=== PATIENT | female | born 1945 | race Caucasian/White ===

== ENCOUNTER 2016-10-21 11:04 | Outpatient (CLI) | payer MEDICARE, MEDICAID ==
[2016-10-21 11:34] LABS: % BASOPHILS 1.4 % (0.0-2.0); % EOSINOPHILS 2.1 % (0.0-5.0); % LYMPHOCYTES 23.3 % (20.0-50.0); % MONOCYTES 12.4 % (2.0-10.0); % NEUTROPHILS 60.8 % (40.0-80.0); HEMATOCRIT 35.5 % (35.0-45.0); HEMOGLOBIN 12.2 gm/dL (11.7-16.1); MEAN CORPUSCULAR HEMOGLOBIN 30.6 pg (27.0-31.0); MEAN CORPUSCULAR HGB CONC 34.4 pg (28.0-36.0); MEAN PLATELET VOLUME 8.8 fl; NEUTROPHILE ABSOLUTE 2.1 Th/cmm (1.8-8.0); RED BLOOD COUNT 3.99 Mil/cmm (3.80-5.20); RED CELL DISTRIBUTION WIDTH 12.6 % (11.5-20.0); WHITE BLOOD COUNT 3.4 Th/cmm (4.8-10.8)
[2016-10-21 11:37] LABS: PLATELET COUNT 186 Th/cmm (150-400)
[2016-10-21 12:02] LABS: ALB/GLOB RATIO 1.1 (1.0-1.8); ALKALINE PHOSPHATASE 76 U/L (34-104); ANION GAP 5.3 (7.0-16.0); BILIRUBIN,TOTAL 0.5 mg/dL (0.3-1.0); BUN - UREA NITROGEN 14 mg/dL (7-25); BUN/CREATININE RATIO 17.5; CARBON DIOXIDE 27.1 mEq/L (21.0-31.0); CHLORIDE 108 mEq/L (98-107); CHOLESTEROL 163 mg/dL (<200); CREATININE - SERUM 0.8 mg/dL (0.6-1.2); GLUCOSE 90 mg/dL (70-105); POTASSIUM SERUM 3.4 mEq/L (3.5-5.1); SGOT 16 U/L (13-39); SGPT/ALT 10 U/L (7-52); SODIUM SERUM 137 mEq/L (136-145); TRIGLYCERIDES 133 mg/dL (<150)
== END 2016-10-21 12:00 | disposition home or self-care (01) ==
LOC: LAB 11:04
PROVIDERS: ATTEND Internal Medicine Infectious Disease
DX: I10 Essential (primary) hypertension (principal); E11.9 Type 2 diabetes mellitus without complications; E03.9 Hypothyroidism, unspecified; E78.5 Hyperlipidemia, unspecified; M19.90 Unspecified osteoarthritis, unspecified site
CPT/HCPCS: 36415-UA; 80053-TC; 80061-TC; 83036-90; 84443-TC; 85025-TC

== ENCOUNTER 2016-10-29 14:01 | Emergency (ER) | payer MEDICARE, MEDICAID ==
[2016-10-29] MEDS ORDERED: fentaNYL Citrate 100 mcg/2mL Vial IVP ONE ×3 (14:27→18:18)
[2016-10-29] MEDS ORDERED: Midazolam 1mg/ml 2 ml vial IV STA ×2 (14:36→15:02)
--- NOTE | 2016-10-29 14:45 | ED Physician Chart ---
Chief Complaint/HPI - Patient Information Date Seen:: 10/29/16 Time Seen:: 14:15 Chief Complaint:: right hip pain, recurrent Allergies:: Allergies Allergy/AdvReac Type Severity Reaction Status Date / Time No Known Allergies Allergy Verified 10/29/16 14:28 Vitals:: Vital Signs - 8 hr 10/29/16 14:29 Temp 98.2 F HR 73 RR 17 BP 149/85 O2 Sat % 98 Review:: Nurse's Note Reviewed, EMS run form Reviewed (recurrent right hip prosthesis dislocation) Past Medical History - Past Medical History Past Medical History: HTN, Dyslipidemia, Other (depression) Family History: Diabetes Melitus Social History: Non Smoker, Alcohol Surgical History: other (ortho) Psychiatricy History: Depression Family Medical History - Family Member Father History Unknown: Yes (dm) Ethnicity: Living Status: Hx Family Cancer: No Hx Family Coronary Artery Disease: Yes Hx Family Hypertension: Yes Hx Family Diabetes: Yes Mother Ethnicity: Living Status: Still Living Hx Family Diabetes: Yes Physical Exam - Physical Examination General/Constitutional: Awake, Alert, GCS 15, Non-toxic appearing Head: Atraumatic Neck: Nontender Respiratory: Clear to Auscultation, No Wheeze/Rhonchi/Rales Cardio Vascular: RRR, No murmur, gallop, rubs Other Extremities comments:: right lower extremity is foreshortened and rotated medially, tenderness right hip. 100% nv to toes. Neuro/Psych: Alert/oriented, Normal sensory exam, Judgement/insight normal, No focal deficits ED Septic Shock - . Is Septic Shock (SBP<90, OR Lactate>4 mmol\L) present?: No - <6hrs of presentation: Vital Signs: Vital Signs - 8 hr 10/29/16 14:29 Temp 98.2 F HR 73 RR 17 BP 149/85 O2 Sat % 98 Procedures - Procedural Sedation ASA Class: II PROCEDURE - Procedure Note Procedure Note: PHYSICIAN Procedure Note: Procedure: Indications: Procedure performed by: Kishore Peacock Consent: Consent was obtained from the patietn prior to the procedure. Indications, risks and benefits were discussed with the patient. All questions were answered. Procedure Summary: Complications: Estimated Blood Loss: SignedKishore [id number] Course Vital Signs Temp 98.2 F 10/29/16 14:29 HR 73 10/29/16 14:29 RR 17 10/29/16 14:29 BP 149/85 10/29/16 14:29 O2 Sat % 98 10/29/16 14:29 Temp 98.2 F 10/29/16 14:29 HR 73 10/29/16 14:29 RR 17 10/29/16 14:29 BP 149/85 10/29/16 14:29 O2 Sat % 98 10/29/16 14:29 Radiology Results - Radiology Radiology Results: dislocated right hip prosthesis
[2016-10-29] MEDS ORDERED: fentaNYL Citrate 100 mcg/2mL Vial ONE ×3 (14:56→17:55)
[2016-10-29] MEDS ORDERED: Midazolam 1mg/ml 2 ml vial IV ONE ×4 (14:56→17:55)
[2016-10-29] MEDS ORDERED: Naloxone 0.4 mg/mL 1mL Vial IV ONE (15:10)
[2016-10-29] MEDS ORDERED: Flumazenil 0.1 m/mL 5mL Vial IVP STA (15:10)
[2016-10-29] MEDS ORDERED: Naloxone 0.4 mg/mL 1mL Vial ONE (16:34)
[2016-10-29] MEDS ORDERED: Flumazenil 0.1 m/mL 5mL Vial IVP ONE (16:36)
[2016-10-29] MEDS ORDERED: Dexamethasone Sodium Phos 4 mg/mL Vial IVP STA (20:57)
[2016-10-29] MEDS ORDERED: Dexamethasone Sodium Phos 10 mg/mL PF Vial ONE (21:00)
--- NOTE | 2016-10-29 21:13 | ED Physician Chart ---
Chief Complaint/HPI - Patient Information Allergies:: Allergies Allergy/AdvReac Type Severity Reaction Status Date / Time No Known Allergies Allergy Verified 10/29/16 14:28 Vitals:: Vital Signs - 8 hr 10/29/16 10/29/16 14:29 19:30 Temp 98.2 F 98.2 F HR 73 100 RR 17 20 BP 149/85 139/72 O2 Sat % 98 98 Family Medical History - Family Member Father History Unknown: Yes (dm) Ethnicity: Living Status: Hx Family Cancer: No Hx Family Coronary Artery Disease: Yes Hx Family Hypertension: Yes Hx Family Diabetes: Yes Mother Ethnicity: Living Status: Still Living Hx Family Diabetes: Yes ED Septic Shock - . Is Septic Shock (SBP<90, OR Lactate>4 mmol\L) present?: No - <6hrs of presentation: Vital Signs: Vital Signs - 8 hr 10/29/16 10/29/16 14:29 19:30 Temp 98.2 F 98.2 F HR 73 100 RR 17 20 BP 149/85 139/72 O2 Sat % 98 98 Procedures - Procedural Sedation Indication: fracture/dislocation reduction ASA Class: II Preparation: cardiac cath lab radiology technologist applied, pulse oximeter, supplemental O2 applied, suction/airway equipment at bedside, IV secured IV Etomidate Dose (mgs): 20 Patient Tolerated Procedure: well Complications: none Interventions: oxygen applied (right hip prosthesis post reduction film pending)
--- NOTE | 2016-10-30 10:25 | Diagnostic Imaging Report ---
Right hip (2 views) HISTORY: Pain The exam demonstrates dislocation of a right hip arthroplasty Incidentally noted is a left hip arthroplasty appears normal. IMPRESSION: 1. Dislocation right hip arthroplasty
--- NOTE | 2016-10-30 10:27 | Diagnostic Imaging Report ---
Right hip (2 views) HISTORY: Dislocation Compared with prior exam performed earlier in the day, there has been reduction of the previously noted dislocation of a right hip arthroplasty. IMPRESSION: Reduction in previously noted dislocation of a right hip arthroplasty
== END 2016-10-29 22:00 | disposition home or self-care (01) ==
LOC: ER 14:01
DX: T84.020A Dislocation of internal right hip prosthesis, initial encounter (principal); I10 Essential (primary) hypertension; E78.5 Hyperlipidemia, unspecified; X58.XXXA Exposure to other specified factors, initial encounter; Y93.89 Activity, other specified; Y92.89 Other specified places as the place of occurrence of the external cause; Y99.8 Other external cause status
CPT/HCPCS: 99285; 96374; 96375; 27250; 73501 ×2; X6206 ×3; J2250 ×2; J2405; 90779; 90799; 96376; X6614

== ENCOUNTER 2016-12-27 10:41 | Inpatient (IN) | payer MEDICARE, MEDICAID ==
--- NOTE | 2016-12-27 10:57 | ED Physician Chart ---
Chief Complaint/HPI - Patient Information Date Seen:: 12/27/16 Time Seen:: 10:40 Chief Complaint:: neck pain History of Present Illness:: onset x 3 days of exertional neck pains radiating to the chest and both shoulders and left arm with some dyspnea; no abd. pain, A/N/V/D/C, fever, chills Allergies:: Allergies Allergy/AdvReac Type Severity Reaction Status Date / Time No Known Allergies Allergy Verified 10/29/16 14:28 Historian:: Patient, Family Member Review:: Nurse's Note Reviewed Review of Systems - Review of Systems General/Constitutional: Fever, No fever, Chills, No chills, No weight loss, No weakness, No diaphoresis, No edema, No loss of appetite Skin: No skin lesions, No rash, No bruising Head: No headache, No light-headedness Eyes: No loss of vision, No pain, No diplopia ENT: No earache, No nasal drainage, No sore throat, No tinnitus Neck: Neck pain, No swelling, No thyromegaly, No stiffness, No mass noted Cardio Vascular: Chest pain, Palpitations, No PND, No orthopnea, No edema Pulmonary: SOB, Cough, No sputum, No wheezing GI: Nausea, Vomiting, Diarrhea, No pain, No melena, No hematochezia, No constipation, No hematemesis G/U: No dysuria, No frequency, No hematuria Musculoskeletal: No bone or joint pain, No back pain, No muscle pain Endocrine: No polyuria, No polydipsia Psychiatric: No prior psych history, No depression, No anxiety, No suicidal ideation Hematopoietic: No bruising, No lymphadenopathy Allergic/Immuno: No urticaria, No angioedema Neurological: No syncope, No focal symptoms, No weakness, No paresthesia, No headache, No seizure, No dizziness, No confusion, No vertigo Past Medical History - Past Medical History Past Medical History: HTN, CAD, Dyslipidemia Family History: Heart disease, Diabetes Melitus, HTN Social History: Smoker, Alcohol, No Drug Use Surgical History: HIP (Stents for CAHD), other Psychiatricy History: None Medication: Reviewed Family Medical History - Family Member Father History Unknown: Yes (dm) Ethnicity: Living Status: Hx Family Cancer: No Hx Family Coronary Artery Disease: Yes Hx Family Hypertension: Yes Hx Family Diabetes: Yes Mother Ethnicity: Living Status: Still Living Hx Family Diabetes: Yes Physical Exam - Physical Examination General/Constitutional: Awake, Well-developed, well-nourished, Alert, No distress, GCS 15, Non-toxic appearing, Ambulatory Head: Atraumatic Eyes: Lids, conjuctiva normal, PERRL, EOMI Skin: Nl inspection, No rash, No skin lesions, No ecchymosis, Well hydrated, No lymphadenopathy ENMT: External ears, nose nl, Nasal exam nl, Lips, teeth, gums nl Neck: Nontender, Full ROM w/o pain, No JVD, No nuchal rigidity, No bruit, No mass, No stridor Respiratory: Nl effort/Exclusion, Clear to Auscultation, No Wheeze/Rhonchi/Rales Cardio Vascular: RRR, No murmur, gallop, rubs, NL S1 S2 GI: No tenderness/rebounding/guarding, No organomegaly, No hernia, Normal BS's, Nondistended, No mass/bruits, No McBurney tenderness : No CVA tenderness Extremities: No tenderness or effusion, Full ROM, normal strength in all extremities, No edema, Normal digits & nails Neuro/Psych: Alert/oriented, DTR's symmetric, Normal sensory exam, Normal motor strength, Judgement/insight normal, Mood normal, Normal gait, No focal deficits Misc: normal gait, Normal back, No paraspinal tenderness ED Septic Shock - . Is Septic Shock (SBP<90, OR Lactate>4 mmol\L) present?: No Reassessment (Disposition) - Reassessment Reassessment Condition:: Improved - Diagnosis Diagnosis:: Unstable Angina Pectoris - Aftercare/Follow up Instructions Aftercare/Follow-Up Instructions:: Counseled pt regarding lab results/diagnosis & need follow up, Counseled pt & family regarding lab results/diagnosis & need follow up - Patient Disposition Discharge/Transfer:: Acute Care w/in this hosp Accepting Physician:: Dr. Luu Time Called:: 1300 Time Responded:: 13:10 Admitted to:: Telemetry Spoke to:: Dr. Luu Condition at Disposition:: Stable, Improved
[2016-12-27] MEDS ORDERED: Aspirin 81mg Chewable Tab PO STA (10:59)
[2016-12-27 11:16] LABS: HEMATOCRIT 38.1 % (35.0-45.0); HEMOGLOBIN 12.8 gm/dL (11.7-16.1); MEAN CELL VOLUME 88.3 fl (81-100); MEAN CORPUSCULAR HEMOGLOBIN 29.6 pg (27.0-31.0); MEAN CORPUSCULAR HGB CONC 33.5 pg (28.0-36.0); MEAN PLATELET VOLUME 8.4 fl; PLATELET COUNT 185 Th/cmm (150-400); RED BLOOD COUNT 4.31 Mil/cmm (3.80-5.20)
[2016-12-27] MEDS ORDERED: Aspirin 81mg Chewable Tab ONE (11:16)
[2016-12-27 11:18] LABS: WHITE BLOOD COUNT 3.1 Th/cmm (4.8-10.8)
--- NOTE | 2016-12-27 11:19 | Diagnostic Imaging Report ---
CHEST X-RAY: AP view INDICATION: pain COMPARISON: None FINDINGS: Spinal scoliosis is noted. Left basal subsegmental atelectasis versus scarring is noted. No focal consolidation or pleural effusions. Borderline prominent heart is noted. Atherosclerosis is noted. There may be a retrocardiac hiatal hernia. Degenerative changes of the spine are noted. IMPRESSION: Chronic lung changes with left basal subsegmental atelectasis versus scarring. No consolidation identified. Borderline prominent heart. Atherosclerotic vascular disease. Retrocardiac density, possibly representing a hiatal hernia. Lateral views or CT would further clarify.
[2016-12-27 11:26] LABS: INR 0.94 (0.5-1.4); PROTHROMBIN TIME (TEST) 9.8 SECONDS (9.5-11.5)
[2016-12-27 11:29] LABS: ANION GAP 9.4 (7.0-16.0); BUN - UREA NITROGEN 10 mg/dL (7-25); BUN/CREATININE RATIO 14.3; CALCIUM SERUM 7.9 mg/dL (8.6-10.3); CARBON DIOXIDE 22.2 mEq/L (21.0-31.0); CHLORIDE 110 mEq/L (98-107); CHOLESTEROL 204 mg/dL (<200); CREATININE - SERUM 0.7 mg/dL (0.6-1.2); GLUCOSE 114 mg/dL (70-105); POTASSIUM SERUM 3.6 mEq/L (3.5-5.1); SODIUM SERUM 138 mEq/L (136-145); TRIGLYCERIDES 155 mg/dL (<150)
[2016-12-27 11:33] LABS: TROP I 0.01 ng/mL (0.01-0.05)
[2016-12-27 11:43] LABS: BNP 56.7 pg/mL (5.0-100.0)
[2016-12-27 12:03] LABS: BAND NEUTROPHILE 1 % (0-10); NEUTROPHILS 57 % (40-80); PLATELET ESTIMATE ADEQUATE (NORMAL); TOTAL CELLS COUNTED 100
[2016-12-27 13:47] LABS: URINE BILIRUBIN NEGATIVE (NEGATIVE); URINE BLOOD TRACE (NEGATIVE); URINE COLOR YELLOW; URINE GLUCOSE (UA) NEGATIVE (NEGATIVE); URINE KETONE NEGATIVE (NEGATIVE); URINE PROTEIN NEGATIVE (NEGATIVE); URINE UROBILINOGEN 0.2 E.U./dL (0.2 - 1.0)
[2016-12-27 13:51] LABS: URINE BACTERIA OCCASIONAL /hpf (NONE SEEN); URINE EPITHELIAL CELLS OCCASIONAL /lpf (FEW); URINE RBC 0-2 /hpf (0-5); URINE WBC 0-2 /hpf (0-5)
[2016-12-27] MEDS: NITROGLYCERIN OINT 2% 1 INCH PACKET TP SCH ×2 (15:40→21:41)
[2016-12-27] MEDS: Hydrocodone/APAP 10 mg/325 mg Tab PO PRN ×2 (15:40→21:52)
[2016-12-27 16:25] VITALS: BP 126/75
--- NOTE | 2016-12-27 21:09 | Admit Criteria Form ---
Admit Criteria Forms - Admit Criteria Diagnosis: TELEMETRY CARE Telemetry Admission Guidelines (Place 'X' for any and all applicable criteria): Admission to telemetry [A] may be indicated for ANY ONE of the following(1)(2)(3 )(4)(5): [X]I. Cardiac disease, including ANY ONE of the following (9)(10)(11)(12)(13 ): [ ]a) Postacute ID [ ]b) Low-risk patients with ST-segment elevation ID who have undergone successful percutaneous coronary intervention [X]c) Unstable angina [ ]d) Suspected ID (until it is ruled out) [ ]e) Post cardiac surgery (first 48 to 72 hours unless complications occur) [ ]f) Acute arrhythmias (including significant tachycardia or bradycardia) [B] [ ]g) Firing of an implantable cardioverter defibrillator [C] [ ]h) Suspected pacemaker or implantable cardioverter defibrillator malfunction (10) [ ]i) New administration or adjustment of an antiarrhythmic drug [D ] [ ]j) Child admitted for acute congestive heart failure [ ]j) Long QT syndrome [ ]k) Advanced heart block (eg, second-degree Mobitz type II, third- degree heart block) [ ]l) Acute myocarditis or pericarditis [ ]m) Short-term (ambulatory or inpatient) monitoring after a cardiac procedure as indicated by ANY ONE of the following [E]: [ ]i) Electrophysiologic studies [ ]ii) Percutaneous coronary intervention with stent placement [ ]iii) Pacemaker placement with cardiac conduction defect [ ]iv) Implantable cardiac defibrillator placement [ ]II. Drug overdose or poisoning with substance that causes arrhythmias or QT prolongation (eg, phenothiazines, sympathomimetic agents, cyclic antidepressants, digitalis, antiarrhythmic drugs)(15) [ ]III. Short-term (ambulatory or inpatient) monitoring after therapeutic or diagnostic procedure requiring conscious sedation or anesthesia (eg, endoscopy, elective cardioversion) [ ]IV. Acute cerebrovascular even[F](18) [ ]V. Massive blood transfusion (eg, at least 10 units of packed red blood cells in 24 hours) [ ]. Variceal bleeding after endoscopy, sclerotherapy, or IV vasopressin [ ]VII. Uncorrected electrolyte abnormalities associated with an increased risk of dangerous arrhythmia [G]; examples include [ ]a) Hyperkalemia with attributable ECG changes [ ]b) Potassium greater than 6.5 mmol/L (mEq/L) in a patient without history of chronic renal disease [ ]c) Prolonged QT attributed to hypokalemia, hypomagnesemia, or hypocalcemia [ ]VIII.Unexplained syncope or other neurologic event suspected of being due to arrhythmia due to a finding that increases risk; examples include(19)(20)(21): [ ]a) High-risk ECG findings (eg, bifascicular block, bradycardia, abnormal QT interval, ventricular pre- excitation) [ ]b) History of previous syncope due to arrhythmia [ ]c) Abnormal ventricular function (eg, reduced ejection fraction ) [ ]d) Exertional or supine syncope [ ]e) Concerning syncope characteristics (eg, sudden loss of consciousness without prodrome) [ ]f) Family history of sudden [ ]g) Use of arrhythmogenic medication [ ]h) Suspected cardiac ischemia [ ]i) Known channelopathy (eg, long QT syndrome, Brugada syndrome, or catecholaminergic paroxysmal ventricular tachycardia) [ ]j) Known structural heart disease (eg, hypertrophic cardiomyopathy , severe valvular disease) [ ]k) Palpitations preceding syncope The original [employer] content created by [employer] has been revised. The portions of the content which have been revised are identified through the use of italic text or in bold, and [employer] [email or web address] has neither reviewed nor approved the modified material. All other unmodified content is copyright [employer]. Please see references footnoted in the original [employer] edition 2016 Admit Criteria Met?: Yes
[2016-12-28] MEDS: Hydrocodone/APAP 10 mg/325 mg Tab PO PRN ×3 (02:56→22:37)
[2016-12-28] MEDS: NITROGLYCERIN OINT 2% 1 INCH PACKET TP SCH ×3 (07:00→21:13)
[2016-12-28] MEDS ORDERED: AMLODIPINE PO SCH (09:00)
[2016-12-28] MEDS ORDERED: VALSARTAN PO SCH (09:00)
[2016-12-28] MEDS: Potassium Chloride Elixir 20 mEq /15 mL UDC PO SCH (09:22)
[2016-12-28] MEDS: Pantoprazole 40 mg EC Tab PO SCH (09:23)
[2016-12-28] MEDS: Aspirin 81mg Chewable Tab PO SCH (09:24)
--- NOTE | 2016-12-28 12:54 | Diagnostic Imaging Report ---
Soft tissue neck 2 views History: Neck pain Comparison: None Findings: Extensive degenerative change of the cervical spine are noted. Note that the lower cervical spine is incompletely visualized on this exam. No prevertebral soft tissue swelling. The airways intact. The epiglottis is grossly unremarkable. There is diffuse loss of the ventilation. IMPRESSION: Intact airway. No prevertebral soft tissue swelling Extensive degenerative changes of the cervical spine. If indicated, dedicated x-ray images of the cervical spine or CT may also be obtained.
--- NOTE | 2016-12-28 18:37 | History & Physical ---
ADMIT DATE: 12/27/2016 HISTORY OF PRESENT ILLNESS: This is a 71-year-old female who was brought to the Emergency Room complaining of just skin discomfort radiating to the neck, history of ____. The patient started having above symptoms on the day of admission, acute sudden [id number] and the patient was evaluated by the ER, referred for admission with angina. Admission orders are given. The patient examined as soon as possible. PAST MEDICAL HISTORY: Osteoarthritis, osteoporosis, coronary artery disease, fibromyalgia, keratitis, hypertension, depression, hip replacement, hernia repair, breast biopsy, PTCA, ex-smoker. The patient is allergic to pneumococcal____ vaccine. REVIEW OF SYSTEMS: A 14-point review of system negative except above. PHYSICAL EXAMINATION: GENERAL: The patient is alert, awake, decreased vision without any distress. VITAL SIGNS: Temperature is 97.9, pulse 69, respiration 17, blood pressure 118/75. HEENT: Mild pallor, no icterus or plaque. NECK: Supple. No thyroid, no cervical lymph nodes, arthritic changes present. LUNGS: Breath sounds bilateral. CARDIOVASCULAR: S1, S2. ABDOMEN: Soft, nontender. Bowel sounds. LABORATORY DATA: White count 3000, hemoglobin is 12 g, platelets 185. Creatinine is 0.7. UA negative. Chest x-ray shows chronic lung changes, hiatal hernia. DIAGNOSIS: Angina, rule out myocardial infarction. PLAN: The patient started aspirin, nitrites, beta-lory, pain control with [place]. Restart home medication, cardiac profile q. 8 hours. Rest of the care as ordered in [facility]PO[facility]. JOB# [id number]
[2016-12-29] MEDS: NITROGLYCERIN OINT 2% 1 INCH PACKET TP SCH ×3 (05:07→21:08)
[2016-12-29] MEDS: Hydrocodone/APAP 10 mg/325 mg Tab PO PRN ×3 (05:12→23:56)
[2016-12-29] MEDS: Pantoprazole 40 mg EC Tab PO SCH (09:05)
[2016-12-29] MEDS: Aspirin 81mg Chewable Tab PO SCH (09:05)
[2016-12-29] MEDS: Potassium Chloride Elixir 20 mEq /15 mL UDC PO SCH (09:06)
--- NOTE | 2016-12-29 19:21 | Cardiology ---
12/27/2016 ECHOCARDIOGRAM REPORT The patient of Dr. Mario Luu. M-MODE ECHOCARDIOGRAM: Mitral valve, anterior leaflet of mitral valve shows normal excursion, EF velocity. Posterior leaflet of the mitral valve shows normal excursion. Left ventricular posterior wall shows increased thickness, normal excursion. Interventricular septum shows increased thickness, normal excursion, hypertrophy of the left ventricle, ejection fraction 55%. Left atrium normal. Aortic root shows normal dimension, normal excursion of aortic leaflets. CONCLUSION: Hypertrophy of the left ventricle, ejection fraction 55%. 2D ECHO: Long axis view showed normal sized left ventricle with hypertrophy of the left ventricle. Left atrium normal. Aortic root shows normal dimension, normal excursion of aortic leaflets. Short axis view of mitral valve normal, short axis view of aortic valve normal. Apical four chamber view showed normal sized left ventricle with hypertrophy of the left ventricle. Left atrium normal. Right ventricular cavity, right atrium normal. No pericardial effusion. CONCLUSION: Hypertrophy of the left ventricle, ejection fraction 55%. Doppler study shows prominent A wave consistent with poor compliance of left ventricle, ____trace mild tricuspid regurgitation, trace mitral regurgitation. JOB# [id number]
--- NOTE | 2016-12-29 20:30 | Consultation ---
DATE OF CONSULTATION: 12/27/2016 The patient is a patient of Dr. Mario Luu. HISTORY AND PHYSICAL: This is a 71-year-old female patient who had been complaining of neck pain. Following this the patient put vibrator with it and the patient started complaining of pain in the neck which gradually deteriorated and radiated to the chest. At this time, the patient came to the Emergency Room and the patient is admitted. PAST MEDICAL HISTORY: Osteoarthritis, osteoporosis, stable angina, coronary artery disease with stent placement, fibromyalgia, keratitis, hypertension, major depression, hip replacement, hernia repair and breast biopsy. FAMILY HISTORY: Unremarkable. SOCIAL HISTORY: No history of smoking and alcohol abuse. ALLERGIES: The patient is allergic to pneumococcal vaccine. PHYSICAL EXAMINATION: VITAL SIGNS: Blood pressure 100/70, pulse 88 and respirations 28. HEAD: Normocephalic. No lumps or bumps. EYES: Pupils equal, reactive to light. Fundi show AV nicking, sclerae white, conjunctivae pink. NECK: Carotid 2+. Normal upstroke. JVD flat. Thyroid not palpable. Lymph nodes not palpable. CHEST: Shows increased AP diameter. No kyphosis or scoliosis. LUNGS: Bilateral bronchovesicular breath sounds. HEART: PMI, fifth intercostal space with azvwjlm-gx-lbsgfegotdqra line. S1 and S2. No S3, S4. Systolic murmur, grade 2/6, lower left sternal border without radiation. ABDOMEN: Soft. Liver and spleen not palpable. No organomegaly. Bowel sounds are active. NEUROLOGIC: Unremarkable. EXTREMITIES: Peripheral pulses 2+. No pedal edema. CLINICAL IMPRESSION: ____ radiculopathy, atypical chest pain, osteoarthritis, osteoporosis, stable angina, history of coronary artery disease with stent placement, major depression, hypertension, keratitis, fibromyalgia, hiatal hernia and history of hip placement. PLAN: Admit the patient. We will get troponin level, EKG, echocardiogram. Monitor the patient on telemetry bed for any arrhythmias. JOB# [id number]
[2016-12-30] MEDS: NITROGLYCERIN OINT 2% 1 INCH PACKET TP SCH ×2 (05:46→15:22)
[2016-12-30] MEDS: Potassium Chloride Elixir 20 mEq /15 mL UDC PO SCH (08:32)
[2016-12-30] MEDS: Aspirin 81mg Chewable Tab PO SCH (08:32)
[2016-12-30] MEDS: Pantoprazole 40 mg EC Tab PO SCH (08:32)
[2016-12-30] MEDS: Hydrocodone/APAP 10 mg/325 mg Tab PO PRN (10:19)
--- NOTE | 2016-12-30 13:09 | Diagnostic Imaging Report ---
CT scan cervical spine HISTORY: Pain Total DLP equals 500 CTDI equals 23.0 Axial sections were obtained through the cervical spine. Additional sagittal and coronal reformatted images are provided. The exam the C3-4 level demonstrates marked narrowing of the interspace. Hypertrophic spur formation seen about the vertebral endplates. Air is seen within the interspace reflecting degenerative disc disease. Spur formation results in a mild (2 mm) extradural indentation on the anterior spinal canal. Mild bilateral neural foraminal encroachment. The C4-5 level demonstrates degenerative changes with spur formation about the vertebral endplates. No significant extradural abnormalities. The C5-6 level demonstrates degenerative changes with narrowing of the interspaces. Spur formation seen about the vertebral endplates. No significant extradural abnormalities. The C6-7 level demonstrates degenerative changes with spur formation about the vertebral endplates. Spur formation results in a minimal extradural indentation on the anterior spinal canal. Additional degenerative changes seen within the upper thoracic spine. The prevertebral soft tissues appear normal. IMPRESSION: 1. Relatively severe diffuse degenerative changes
--- NOTE | 2016-12-30 23:14 | Consultation ---
DATE OF CONSULTATION: 12/30/2016 HISTORY OF PRESENT ILLNESS: This is a 71-year-old female who complains of pain in the neck going down the left arm and left shoulder. Numbness in the arm. The patient also complained of chest pain. PAST MEDICAL HISTORY: Fibromyalgia, coronary artery disease, hypertension, depression and the patient has osteoporosis. PAST SURGICAL HISTORY: Breast biopsy, hernia repair and hip replacement. SOCIAL HISTORY: She used to smoke, not now and does not drink much. ALLERGIES: To pneumococcal vaccine. REVIEW OF SYSTEMS: On direct questioning some headache. Neck pain as about. Numbness in arm. The patient has chest pain. Shortness of breath. No abdominal pain, no constipation, diarrhea. Speech okay. PHYSICAL EXAMINATION: VITAL SIGNS: Temperature 98.2, blood pressure 120/75 and pulse is 76. NECK: Supple. No bruits. HEART: Sounds S1, S2. LUNGS: Clear. NEUROLOGIC: The patient is awake and alert. She answers questions. Speech is normal. When I arrived in the room, the patient was awake. The patient was walking around the room and did not seem to be in any distress. CRANIAL: Pupils react to light. Full eye movement. No nystagmus. No facial weakness. MOTOR: She lifts both arms up 4+/4, lower extremity 4+. Reflexes 1+ upper extremities. Knees are about 2 with ankles 1. IMPRESSION: 1. Neck pain. 2. Cervical radiculopathy. 3. Chest pain. 4. Hypertension. 5. History of coronary artery disease. 6. Fibromyalgia. 7. Hypertension. 8. Depression. PLAN: At this time is MRI of the cervical spine. Further workup depending on the progress. JOB# [id number]
--- NOTE | 2016-12-31 01:56 | Discharge Summary ---
DATE OF DISCHARGE: 12/30/2016 DISCHARGE DIAGNOSES: 1. Angina. 2. Neck pain. HISTORY OF PRESENT ILLNESS/HOSPITAL COURSE: The patient started having angina on the day of admission. 911 was called. The patient was brought to Emergency Room and was seen by ER physician Dr. Collins and was referred for admission. The patient's troponin was negative. Cardiology consultation with Dr. Lorena Luu was called and cleared for discharge. The patient also had x-ray of the neck and C-spine, CT which shows spur formation and indentation of anterior spinal canal. Neurosurgeon not available in the facility. We will refer as outpatient. Also, Neurology consultation has been called to Dr. Tiwari and evaluation still pending. We will try to refer her as outpatient. INSTRUCTION ON DISCHARGE: 2 g sodium, low-cholesterol diet, restart home medication including [place] to control her pain symptoms and we will see her in the office on Monday. Activity as tolerated. JOB# [id number]
== END 2016-12-30 16:30 | disposition home or self-care (01) | DRG 303 ==
LOC: ER 10:41 → TELE 13:30
PROVIDERS: ADMIT Internal Medicine Infectious Disease; ATTEND Internal Medicine Infectious Disease
DX: I25.119 Atherosclerotic heart disease of native coronary artery with unspecified angina pectoris (principal); I10 Essential (primary) hypertension; K44.9 Diaphragmatic hernia without obstruction or gangrene; M19.90 Unspecified osteoarthritis, unspecified site; M81.0 Age-related osteoporosis without current pathological fracture; M79.7 Fibromyalgia; F32.9 Major depressive disorder, single episode, unspecified; E78.5 Hyperlipidemia, unspecified; R07.89 Other chest pain; F17.210 Nicotine dependence, cigarettes, uncomplicated; M54.12 Radiculopathy, cervical region; Z83.3 Family history of diabetes mellitus; Z95.5 Presence of coronary angioplasty implant and graft; Z82.49 Family history of ischemic heart disease and other diseases of the circulatory system
CPT/HCPCS: 36415-UA; 70360-TC; 71010-TC; 72125-TC; 80048-TC; 80061-TC; 80320-TC; 81001-TC; 82550-TC; 83605; 83880-TC; 84484-TC; 85007-TC; 85027-TC; 85610-TC; 87086-90; 93005; Z7610

== ENCOUNTER 2018-01-28 08:59 | Emergency (ER) | payer MEDICARE, MEDICAID ==
[2018-01-28] MEDS ORDERED: Morphine Sulfate 4 mg/mL 1mL Syr IM ONE (09:34)
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
[2018-01-28] MEDS ORDERED: Morphine Sulfate 4 mg/mL 1mL Syr ONE (09:38)
--- NOTE | 2018-01-28 10:10 | Diagnostic Imaging Report ---
Exam: Left shoulder joint. HISTORY: Injury. Findings: Multiple views of left shoulder joint reviewed. The study demonstrates no evidence for acute fracture dislocation. The acromioclavicular joint is intact. Degenerative changes of the left shoulder joint appreciated. IMPRESSION mild degenerative changes left shoulder joint no evidence for fracture or dislocation.
== END 2018-01-28 10:15 | disposition home or self-care (01) ==
LOC: ER 08:59
DX: S43.005A Unspecified dislocation of left shoulder joint, initial encounter (principal); I25.10 Atherosclerotic heart disease of native coronary artery without angina pectoris; Z90.49 Acquired absence of other specified parts of digestive tract; X58.XXXA Exposure to other specified factors, initial encounter; Y93.89 Activity, other specified; Y92.89 Other specified places as the place of occurrence of the external cause; Y99.8 Other external cause status
CPT/HCPCS: 73030-TC-LT; Z7502

== ENCOUNTER 2018-02-03 08:58 | Inpatient (IN) | payer MEDICARE, MEDICAID ==
--- NOTE | 2018-02-03 09:14 | ED Physician Chart ---
History of Present Illness - General Chief Complaint: Hip Pain Stated Complaint: HIP PAIN Time Seen by Provider: 02/03/18 09:00 Source: Patient, EMS - History of Present Illness Timing/Duration: this morning Severity: moderate Hip Pain Location: hip (R) Method of Injury/Prior Injury: twisted Allergies/Adverse Reactions: Allergies influenza virus vaccine ts [id number] (36 mos,up) [From Fluarix] Allergy ( Verified 02/03/18 09:07) Home Medications: Ambulatory Orders Gabapentin [Gabapentin*] 100 mg PO TID 03/13/13 Omeprazole [Prilosec*] 40 mg PO DAILY 03/13/13 Simvastatin [Zocor*] 20 mg PO DAILY 03/13/13 alprazOLAM [Xanax] 0.5 mg PO TID PRN 03/13/13 Amlodipine/Valsartan [Amlodipine Besylate-Valsartan 10 mg-320 mg] 1 tab PO DAILY 10/29/16 Calcium Carbonate [Os-Patrick] 500 mg PO BID 10/29/16 Furosemide [Lasix] 20 mg PO DAILY 10/29/16 Hydrocodone/APAP 10 mg/325 mg [[place] 10 mg/325 mg] 1 tab PO Q6H PRN 10/29/16 Potassium Chloride 600 mg PO DAILY 10/29/16 Sertraline [Zoloft] 25 mg PO DAILY 10/29/16 Past History - Past Medical History Medical History: Hypertension Surgical History: Cholecystectomy, Other (HYSTERECTOMY) LMP (females 10-50): HYSTERECTOMY - Social History Smoking Status: Former smoker Hx Alcohol Use: No Family Medical History - Family Member Father History Unknown: Yes (dm) Ethnicity: Living Status: Hx Family Cancer: No Hx Family Coronary Artery Disease: Yes Hx Family Hypertension: Yes Hx Family Diabetes: Yes Mother History Unknown: Yes Ethnicity: Living Status: Still Living Hx Family Diabetes: Yes Review of Systems - Review of Systems EENTM: Reports: No symptoms reported Respiratory: Reports: No Symptoms Reported Cardiology: Reports: No symptoms reported Gastrointestinal/Abdominal: Reports: No symptoms reported Genitourinary: Reports: No Symptoms Reported Musculoskeletal: Reports: See HPI, Muscle Pain Skin: Reports: No Symptoms Reported Neurological: Reports: No Symptoms Reported Physical Exam - Physical Exam General Appearance: no apparent distress Eyes, Ears, Nose, Throat Exam: PERRL/EOMI Neck Exam: non-tender Cardiovascular/Respiratory: regular rate, rhythm, no M/R/G, normal peripheral pulses Gastrointestinal/Abdominal: Normal bowel sounds Back Exam: normal inspection Extremity Exam: no evidence of injury Skin Exam: normal color Departure - Departure Disposition: PT DISCHARGED HOME Discharge Problem: SEVERE RIGHT HIP PAIN Condition: Stable Home Medications: Ambulatory Orders Gabapentin [Gabapentin*] 100 mg PO TID 03/13/13 Omeprazole [Prilosec*] 40 mg PO DAILY 03/13/13 Simvastatin [Zocor*] 20 mg PO DAILY 03/13/13 alprazOLAM [Xanax] 0.5 mg PO TID PRN 03/13/13 Amlodipine/Valsartan [Amlodipine Besylate-Valsartan 10 mg-320 mg] 1 tab PO DAILY 10/29/16 Calcium Carbonate [Os-Patrick] 500 mg PO BID 10/29/16 Furosemide [Lasix] 20 mg PO DAILY 10/29/16 Hydrocodone/APAP 10 mg/325 mg [[place] 10 mg/325 mg] 1 tab PO Q6H PRN 10/29/16 Potassium Chloride 600 mg PO DAILY 10/29/16 Sertraline [Zoloft] 25 mg PO DAILY 10/29/16 ED Discharge Plan - Patient Disposition Admit/Discharge/Transfer: PT DISCHARGED HOME
--- NOTE | 2018-02-03 09:56 | Diagnostic Imaging Report ---
Right hip (3 views) HISTORY: Pain The exam demonstrates dislocation of a right hip arthroplasty. IMPRESSION: 1. Dislocation right hip arthroplasty
[2018-02-03] MEDS ORDERED: Midazolam 1mg/ml 2 ml vial IV ONE (10:16)
[2018-02-03] MEDS ORDERED: fentaNYL Citrate 100 mcg/2mL Vial ONE ×2 (10:17→10:32)
[2018-02-03] MEDS ORDERED: HYDROmorphone 2 mg/mL 1mL Vial ONE (11:19)
[2018-02-03] MEDS ORDERED: Ketamine 50 mg/mL 10mL Vial ONE (11:27)
[2018-02-03 13:20] LABS: % BASOPHILS 0.7 % (0.0-2.0); % EOSINOPHILS 0.4 % (0.0-5.0); % LYMPHOCYTES 8.8 % (20.0-50.0); % MONOCYTES 6.9 % (2.0-10.0); % NEUTROPHILS 83.2 % (40.0-80.0); HEMATOCRIT 39.4 % (41.0-60); LYMPHOCYTE ABSOLUTE 0.6 Th/cmm (1.5-3.0); MEAN CELL VOLUME 88.5 fl (81-100); MEAN CORPUSCULAR HEMOGLOBIN 29.2 pg (27.0-31.0); MEAN PLATELET VOLUME 8.8 fl; MONOCYTE ABSOLUTE 0.4 Th/cmm (0.3-1.0); NEUTROPHILE ABSOLUTE 5.3 Th/cmm (1.8-8.0); PLATELET COUNT 212 Th/cmm (150-400); RED BLOOD COUNT 4.46 Mil/cmm (3.80-5.20); RED CELL DISTRIBUTION WIDTH 13.1 % (11.5-20.0); WHITE BLOOD COUNT 6.3 Th/cmm (4.8-10.8)
[2018-02-03 13:33] LABS: PROTHROMBIN TIME (TEST) 10.4 SECONDS (9.5-11.5)
[2018-02-03 13:35] LABS: ALB/GLOB RATIO 1.2 (1.0-1.8); ALKALINE PHOSPHATASE 188 U/L (34-104); ANION GAP 11.8 (7.0-16.0); BILIRUBIN,TOTAL 0.7 mg/dL (0.3-1.0); BUN - UREA NITROGEN 10 mg/dL (7-25); CALCIUM SERUM 9.3 mg/dL (8.6-10.3); CARBON DIOXIDE 24.3 mEq/L (21.0-31.0); CHLORIDE 105 mEq/L (98-107); CREATININE - SERUM 0.7 mg/dL (0.6-1.2); GLUCOSE 94 mg/dL (70-105); MAGNESIUM 2.1 mg/dL (1.9-2.7); POTASSIUM SERUM 4.1 mEq/L (3.5-5.1); SGOT 129 U/L (13-39); SGPT/ALT 48 U/L (7-52); SODIUM SERUM 137 mEq/L (136-145); TOTAL PROTEIN,SERUM 7.3 gm/dL (6.0-8.3)
[2018-02-03 15:53] VITALS: BP 125/54
[2018-02-03] MEDS ORDERED: Hydrocodone/APAP 10 mg/325 mg Tab PO PRN (19:52)
[2018-02-03] MEDS: HYDROmorphone 2 mg/mL 1mL Vial IVP PRN (21:25)
--- NOTE | 2018-02-04 08:41 | History and Physical ---
History of Present Illness - HPI Chief Complaint: Hip dislocation HPI: Patient refer that she was trying to get in bed when she felt something in right hip, reason why she came to ER. Vital Signs: Last Vital Signs Temp 98.8 F 02/04/18 08:02 Pulse 72 02/04/18 08:02 Resp 18 02/04/18 08:02 BP 143/72 02/04/18 08:02 Pulse Ox 96 02/04/18 08:02 Past Medical History Cardiovascular: Report: HTN Pulmonary: Report: No Pertinent Hx CABIN SUPERVISOR: Report: No Pertinent Hx GI: Report: No Pertinent Hx Psych: Report: No Pertinent Hx Musculoskeletal: Report: No Pertinent Hx Rheumatologic: Report: No pertinent Hx Infectious Disease: Report: No Pertinent Hx Renal/: Report: No Pertinent Hx Endocrine: Report: No Pertinent Hx Dermatology: Report: No Pertinent Hx - Past Surgical History Past Surgical History: Other (Bilateral hip replacement) Family Medical History - Family Member Father History Unknown: Yes (dm) Ethnicity: Living Status: Hx Family Cancer: No Hx Family Coronary Artery Disease: Yes Hx Family Hypertension: Yes Hx Family Diabetes: Yes Mother History Unknown: Yes Ethnicity: Living Status: Still Living Hx Family Diabetes: Yes Social History Smoke: No Alcohol: None Drugs: None Lives: With Family Domestic Violence: Negative - Medications Home Medications: Home Medication Medication Instructions Recorded Type Gabapentin [Gabapentin*] 100 mg PO TID 03/13/13 History Omeprazole [Prilosec*] 40 mg PO DAILY 03/13/13 History Simvastatin [Zocor*] 20 mg PO DAILY 03/13/13 History alprazOLAM [Xanax] 0.5 mg PO TID PRN 03/13/13 History Amlodipine/Valsartan [Amlodipine 1 tab PO DAILY 10/29/16 History Besylate-Valsartan 10 mg-320 mg] Calcium Carbonate [Os-Patrick] 500 mg PO BID 10/29/16 History Furosemide [Lasix] 20 mg PO DAILY 10/29/16 History Hydrocodone/APAP 10 mg/325 mg 1 tab PO Q6H PRN 10/29/16 History [[place] 10 mg/325 mg] Potassium Chloride 600 mg PO DAILY 10/29/16 History Sertraline [Zoloft] 25 mg PO DAILY 10/29/16 History - Allergies Allergies/Adverse Reactions: Allergies Allergy/AdvReac Type Severity Reaction Status Date / Time influenza virus vaccine ts Allergy Verified 02/03/18 09:07 [id number] (36 mos,up) [From Fluarix] Review of Systems - Review of Systems Constitutional: Report: No Significant Eyes: Report: No Significant ENT: Report: No Significant Respiratory: Report: No Significant Cardiovascular: Report: No Significant Gastrointestinal: Report: No Significant Genitourinary: Report: No Significant Musculoskeletal: Report: Leg Pain Neurological: Report: No Significant Physical Exam - Physical Exam HEENT: Report: Ears Nose Throat within normal limits Neck: Report: Within normal limits Cardiovascular Systems: Report: Regular, Rate and Rhythm Respiratory: Report: Breath Sounds are within normal limits Abdomen: Report: Non-tender to palpation Back: Report: Inspection of back is within normal limits. Extremities: Report: Non-tender to palpation. Skin: Report: Color of skin is within normal limits, Warm, Dry Neuro/Psych: Report: Mood affect is within normal limits - Lab Results All Lab Results last 24 hours: Laboratory Results - last 24 hr 02/03/18 02/03/18 02/03/18 13:06 13:06 13:06 WBC 6.3 RBC 4.46 Hgb 13.0 Hct 39.4 L MCV 88.5 MCH 29.2 MCHC Differential 33.0 RDW 13.1 Plt Count 212 MPV 8.8 Neutrophils % 83.2 H Lymphocytes % 8.8 L Monocytes % 6.9 Eosinophils % 0.4 Basophils % 0.7 PT 10.4 INR 1.00 Sodium 137 Potassium 4.1 Chloride 105 Carbon Dioxide 24.3 Anion Gap 11.8 BUN 10 Creatinine 0.7 Est GFR ( Amer) TNP Est GFR (Non-Af Amer) TNP BUN/Creatinine Ratio 14.3 Glucose 94 Calcium 9.3 Magnesium 2.1 Total Bilirubin 0.7 AST 129 H ALT 48 Alkaline Phosphatase 188 H Total Protein 7.3 Albumin 4.0 Globulin 3.3 Albumin/Globulin Ratio 1.2 - Assessment Assessment: Current Active Problems Problem Status Onset SEVERE RIGHT HIP PAIN Acute Patient is awake, alert, calm in no acute distress. Dx: Hip dislocation, HTN - Plan Plan: Patient is in pain control, continue with home meds. She will have surgery today.
--- NOTE | 2018-02-04 08:43 | Diagnostic Imaging Report ---
Portable chest x-ray HISTORY: Shortness of breath The heart size appears generous. No focal pulmonary processes. Scoliosis of the thoracic spine convexity to the right. Severe arthritic changes noted about the right shoulder. IMPRESSION: 1. No acute focal pulmonary processes 2. Cardiomegaly
--- NOTE | 2018-02-04 08:45 | Diagnostic Imaging Report ---
Right hip (2 views) HISTORY: Dislocation, pain The exam is compared with prior study performed earlier in the day (0939 hours) Exam demonstrates persistent dislocation of a right hip arthroplasty. Scoliosis and degenerative changes seen in the visualized spine. IMPRESSION: 1. Dislocation right hip arthroplasty
[2018-02-04] MEDS ORDERED: AMLODIPINE PO SCH (09:00)
[2018-02-04] MEDS ORDERED: VALSARTAN PO SCH (09:00)
[2018-02-04] MEDS ORDERED: OMEPRAZOLE 40 MG PO SCH (09:00)
--- NOTE | 2018-02-04 09:01 | Diagnostic Imaging Report ---
Right hip (2 views) HISTORY: Dislocation, status post reduction attempt Compared with earlier exams, there is persistent dislocation of a right hip arthroplasty IMPRESSION: 1. Persistent dislocation of a right hip arthroplasty
[2018-02-04] MEDS ORDERED: fentaNYL Citrate 100 mcg/2mL Vial ONE (09:29)
[2018-02-04] MEDS: Pantoprazole 40 mg/Packet PO SCH ×2 (09:33→14:25)
[2018-02-04] MEDS ORDERED: Neostigmine 10mg/10mL Vial ONE (09:53)
[2018-02-04] MEDS ORDERED: Propofol **SURGERY USE ONLY** 20 ML IV ONE (09:53)
--- NOTE | 2018-02-04 11:27 | Diagnostic Imaging Report ---
Right hip (intraoperative fluoroscopic images and services) HISTORY: Dislocation Intraoperative fluoroscopic images and services were provided for facilitation of reduction of a dislocation. 14 seconds fluoroscopy time was utilized.
--- NOTE | 2018-02-04 14:48 | Operative Report ---
DATE OF SURGERY: 02/04/2018 PREOPERATIVE DIAGNOSIS: Dislocation, right total hip prosthesis, closed. POSTOPERATIVE DIAGNOSIS: Dislocation, right total hip prosthesis, closed. SURGEON: Bon Zuniga M.D. PATROL SUPERVISOR: None. ANESTHESIOLOGIST: Dr. Lara. ANESTHESIA: General anesthesia. PROCEDURE: Closed dislocation, right total hip prosthesis under general anesthesia. DESCRIPTION OF PROCEDURE: Following satisfactory anesthesia by Dr. Lara, the patient was placed prone on the operative table with assistant softball coach holding the pelvis applying countertraction. The right thigh was dropped over the edge of the table and the hip easily manipulated into place. The result was viewed with the C-arm and the reduction appeared complete and concentric. She was placed on an abduction pillow and then placed supine on the hospital bed and anesthesia reversed. POSTOPERATIVE CONDITION: Good. JOB# [id number]
[2018-02-04] MEDS: HYDROmorphone 2 mg/mL 1mL Vial IVP PRN (21:42)
[2018-02-05 06:52] LABS: % BASOPHILS 1.5 % (0.0-2.0); % EOSINOPHILS 2.1 % (0.0-5.0); % LYMPHOCYTES 17.8 % (20.0-50.0); % MONOCYTES 10.9 % (2.0-10.0); % NEUTROPHILS 67.7 % (40.0-80.0); BASOPHILE ABSOLUTE 0.1 Th/cumm (0-0.2); EOSINOPHILE ABSOLUTE 0.1 Th/cmm (0.1-0.4); HEMATOCRIT 38.9 % (41.0-60); HEMOGLOBIN 12.8 gm/dL (12-16); LYMPHOCYTE ABSOLUTE 0.8 Th/cmm (1.5-3.0); MEAN CELL VOLUME 88.3 fl (81-100); MEAN CORPUSCULAR HEMOGLOBIN 29.1 pg (27.0-31.0); MEAN CORPUSCULAR HGB CONC 32.9 pg (28.0-36.0); MEAN PLATELET VOLUME 9.4 fl; MONOCYTE ABSOLUTE 0.5 Th/cmm (0.3-1.0); NEUTROPHILE ABSOLUTE 3.2 Th/cmm (1.8-8.0); PLATELET COUNT 193 Th/cmm (150-400); RED CELL DISTRIBUTION WIDTH 13.1 % (11.5-20.0); WHITE BLOOD COUNT 4.7 Th/cmm (4.8-10.8)
[2018-02-05 06:59] LABS: ALB/GLOB RATIO 1.1 (1.0-1.8); ALBUMIN 3.5 gm/dL (3.7-5.3); ALKALINE PHOSPHATASE 150 U/L (34-104); ANION GAP 11.1 (7.0-16.0); BILIRUBIN,TOTAL 0.6 mg/dL (0.3-1.0); BUN - UREA NITROGEN 11 mg/dL (7-25); CALCIUM SERUM 8.9 mg/dL (8.6-10.3); CARBON DIOXIDE 26.4 mEq/L (21.0-31.0); CHLORIDE 102 mEq/L (98-107); CREATININE - SERUM 0.7 mg/dL (0.6-1.2); GLUCOSE 109 mg/dL (70-105); POTASSIUM SERUM 3.5 mEq/L (3.5-5.1); SGOT 48 U/L (13-39); SGPT/ALT 48 U/L (7-52); SODIUM SERUM 136 mEq/L (136-145); TOTAL PROTEIN,SERUM 6.7 gm/dL (6.0-8.3)
[2018-02-05] MEDS: Pantoprazole 40 mg/Packet PO SCH (09:17)
--- NOTE | 2018-02-05 11:45 | Discharge Summary ---
General Discharge Summary - Discharge Summary Patient Problems: All Active Problems SEVERE RIGHT HIP PAIN (Acute) Discharge Date: 02/05/17 Laboratory Findings: Laboratory Results - last 24 hr 02/05/18 02/05/18 05:55 05:55 WBC 4.7 L RBC 4.40 Hgb 12.8 Hct 38.9 L MCV 88.3 MCH 29.1 MCHC Differential 32.9 RDW 13.1 Plt Count 193 MPV 9.4 Neutrophils % 67.7 Lymphocytes % 17.8 L Monocytes % 10.9 H Eosinophils % 2.1 Basophils % 1.5 Sodium 136 Potassium 3.5 Chloride 102 Carbon Dioxide 26.4 Anion Gap 11.1 BUN 11 Creatinine 0.7 Est GFR ( Amer) TNP Est GFR (Non-Af Amer) TNP BUN/Creatinine Ratio 15.7 Glucose 109 H Calcium 8.9 Total Bilirubin 0.6 AST 48 H ALT 48 Alkaline Phosphatase 150 H Total Protein 6.7 Albumin 3.5 L Globulin 3.2 Albumin/Globulin Ratio 1.1 Home Medications: Home Medication Medication Instructions Recorded Type Gabapentin [Gabapentin*] 100 mg PO TID 03/13/13 History Omeprazole [Prilosec*] 40 mg PO DAILY 03/13/13 History Simvastatin [Zocor*] 20 mg PO DAILY 03/13/13 History alprazOLAM [Xanax*] 0.5 mg PO TID PRN 03/13/13 History Amlodipine/Valsartan 1 tab PO DAILY 10/29/16 History [Amlodipine-Valsartan 10-320 mg] Calcium Carbonate [Os-Patrick] 500 mg PO BID 10/29/16 History Furosemide [Lasix] 20 mg PO DAILY 10/29/16 History Hydrocodone/APAP 10 mg/325 mg 1 tab PO Q6H PRN 10/29/16 History [[place] 10 mg/325 mg] Potassium Chloride 600 mg PO DAILY 10/29/16 History Sertraline [Zoloft] 25 mg PO DAILY 10/29/16 History Acetaminophen [Tylenol] 500 mg PO Q5H PRN #0 tab 02/04/18 Rx Ibuprofen [Motrin*] 800 mg PO Q5H PRN tab 02/04/18 Rx Pantoprazole [Protonix] 40 mg PO DAILY pkt 02/04/18 Rx amLODIPine Besylate [Norvasc*] 10 mg PO DAILY tab 02/04/18 Rx Inpatient Medications: Current Medications Acetaminophen (Tylenol) 500 mg PO Q5H PRN PRN Reason: Pain or Fever >101 Stop: 04/05/18 11:46 Last Admin: 02/04/18 14:27 Dose: 500 mg Amlodipine Besylate (Norvasc) 10 mg PO DAILY [facility] Stop: 04/05/18 10:59 Last Admin: 02/05/18 09:17 Dose: Not Given Gabapentin (Neurontin) 100 mg PO TID [facility]NY Stop: 04/04/18 20:59 Last Admin: 02/05/18 09:17 Dose: 100 mg Hydromorphone HCl (Dilaudid) 1 mg IVP Q4H PRN PRN Reason: Pain (Mild) Stop: 04/04/18 12:49 Last Admin: 02/04/18 21:42 Dose: 1 mg Ibuprofen (Motrin) 800 mg PO Q5H PRN PRN Reason: Pain or Fever >101 Stop: 04/05/18 11:43 Last Admin: 02/04/18 14:29 Dose: 800 mg Pantoprazole Sodium (Protonix) 40 mg PO DAILY [facility] Stop: 04/05/18 08:59 Last Admin: 02/05/18 09:17 Dose: 40 mg Simvastatin (Zocor) 20 mg PO HS HENNY PRN Reason: Protocol Stop: 04/05/18 20:59 Last Admin: 02/04/18 21:35 Dose: 20 mg Valsartan (Diovan) 320 mg PO DAILY [facility] Stop: 04/05/18 10:59 Last Admin: 02/05/18 09:17 Dose: Not Given Consults and Follow-Up: NO,PCP PER PATIENT [Other] Trish Orta [Primary Care Provider] - Instructions: Closed Reduction for Artificial Hip Dislocation, Care After
== END 2018-02-05 11:50 | disposition home or self-care (01) | DRG 561 ==
LOC: ER 08:58 → MSI 12:20
PROVIDERS: ADMIT Internal Medicine; ATTEND Internal Medicine
PROC: 0SW9XJZ Revision of Synthetic Substitute in Right Hip Joint, External Approach (ICD-10-PCS; principal; 2018-02-04)
DX: T84.020A Dislocation of internal right hip prosthesis, initial encounter (principal); I11.9 Hypertensive heart disease without heart failure; Y83.8 Other surgical procedures as the cause of abnormal reaction of the patient, or of later complication, without mention of misadventure at the time of the procedure; Z96.643 Presence of artificial hip joint, bilateral; Z79.899 Other long term (current) drug therapy; Y92.89 Other specified places as the place of occurrence of the external cause; Z88.7 Allergy status to serum and vaccine; Z88.8 Allergy status to other drugs, medicaments and biological substances; Z90.49 Acquired absence of other specified parts of digestive tract; Z90.710 Acquired absence of both cervix and uterus; Z87.891 Personal history of nicotine dependence; Z83.3 Family history of diabetes mellitus; Z82.49 Family history of ischemic heart disease and other diseases of the circulatory system; Z82.1 Family history of blindness and visual loss
CPT/HCPCS: 36415-UA; 71045-TC; 73501; 76000-TC; 80053-TC; 83735-TC; 85025-TC; 85610-TC; 93005; 96372; J1170; J2250; J2405; J2704; J2710; J3010; J7030; X6258; X6436; Z7610

== ENCOUNTER 2019-03-09 16:36 | Emergency (ER) | payer MEDICARE, MEDICAID ==
--- NOTE | 2019-03-09 17:10 | ED Physician Chart ---
ED Chief Complaint/HPI - Patient Information Date Seen:: 03/09/19 Time Seen:: 17:05 Chief Complaint:: infected insect bite of the left ankle History of Present Illness:: this is a 73 yo female is here with concern about an insect bite that has her left ankle area to turn red and sore. the bite occurred two days ago. Allergies:: Allergies Allergy/AdvReac Type Severity Reaction Status Date / Time influenza virus vaccine ts Allergy Verified 02/03/18 09:07 [id number] (36 mos,up) [From Fluarix] Vitals:: Vital Signs - 8 hr 03/09/19 16:48 Temp 99.0 F HR 70 RR 15 BP 136/74 O2 Sat % 97 Historian:: Patient Review:: Nurse's Note Reviewed, Old Chart Reviewed ED Review of Systems - Review of Systems General/Constitutional: No fever, No chills, No weight loss, No weakness, No diaphoresis, No edema, No loss of appetite Skin: No skin lesions, No rash, No bruising, Other (left ankle infection) Head: No headache, No light-headedness Eyes: No loss of vision, No pain, No diplopia ENT: No earache, No nasal drainage, No sore throat, No tinnitus Neck: No neck pain, No swelling, No thyromegaly, No stiffness, No mass noted Cardio Vascular: No chest pain, No palpitations, No PND, No orthopnea, No edema Pulmonary: No SOB, No cough, No sputum, No wheezing GI: No nausea, No vomiting, No diarrhea, No pain, No melena, No hematochezia, No constipation, No hematemesis G/U: No dysuria, No frequency, No hematuria Musculoskeletal: No bone or joint pain, No back pain, No muscle pain Endocrine: No polyuria, No polydipsia Psychiatric: No prior psych history, No depression, No anxiety, No suicidal ideation Hematopoietic: No bruising, No lymphadenopathy Allergic/Immuno: No urticaria, No angioedema Neurological: No syncope, No focal symptoms, No weakness, No paresthesia, No headache, No seizure, No dizziness, No confusion, No vertigo ED Past Medical History - Past Medical History Obtainable: Yes Past Medical History: HTN, Dyslipidemia, Arthritis Family History: None Social History: Non Smoker, No Alcohol, No Drug Use Surgical History: Appendectomy, Cholecystectomy, HIP, Hernia, other (bilateral ankle surgery) Family Medical History - Family Member Father History Unknown: Yes (dm) Ethnicity: Living Status: Hx Family Cancer: No Hx Family Coronary Artery Disease: Yes Hx Family Hypertension: Yes Hx Family Diabetes: Yes Mother History Unknown: Yes Ethnicity: Living Status: Still Living Hx Family Cancer: No Hx Family Congestive Heart Failure: No Hx Family Hypertension: No Hx Family Stroke: No Hx Family Diabetes: Yes Hx Family Dementia: No Hx Family AIDS: No Hx Family HIV: No Hx Family Hepatitis: No Hx Family Tuberculosis: No ED Physical Exam - Physical Examination General/Constitutional: Awake, Well-developed, well-nourished, Alert, No distress, GCS 15, Non-toxic appearing, Ambulatory Head: Atraumatic Eyes: Lids, conjuctiva normal, PERRL, EOMI Skin: Nl inspection, No rash, No skin lesions, No ecchymosis, Well hydrated, No lymphadenopathy Other Skin comments:: there is a red horizontal area of the lateral aspect of the left ankle that is tender to touch. the ankle joint is not swollen with a normal rom. ENMT: External ears, nose nl, Nasal exam nl, Lips, teeth, gums nl Neck: Nontender, Full ROM w/o pain, No JVD, No nuchal rigidity, No bruit, No mass, No stridor Respiratory: Nl effort/Exclusion, Clear to Auscultation, No Wheeze/Rhonchi/Rales Cardio Vascular: RRR, No murmur, gallop, rubs, NL S1 S2 GI: No tenderness/rebounding/guarding, No organomegaly, No hernia, Normal BS's, Nondistended, No mass/bruits, No McBurney tenderness : No CVA tenderness Extremities: No tenderness or effusion, Full ROM, normal strength in all extremities, No edema, Normal digits & nails Neuro/Psych: Alert/oriented, DTR's symmetric, Normal sensory exam, Normal motor strength, Judgement/insight normal, Mood normal, Normal gait, No focal deficits Misc: Normal back, No paraspinal tenderness ED Assessment - Assessment General Assessment: infected insect bite ED Septic Shock - . Is Septic Shock (SBP<90, OR Lactate>4 mmol\L) present?: No - <6hrs of presentation: Vital Signs: Vital Signs - 8 hr 03/09/19 16:48 Temp 99.0 F HR 70 RR 15 BP 136/74 O2 Sat % 97 ED Reassessment (Disposition) - Reassessment Reassessment Condition:: Unchanged - Diagnosis Diagnosis:: infected left ankle area of the skin that is tender - Aftercare/Follow up Instructions Aftercare/Follow-Up Instructions:: Counseled pt regarding lab results/diagnosis & need follow up, Refer to Discharge Instructions, Counseled pt & family regarding lab results/diagnosis & need follow up Medication Prescribed:: sharri, - Patient Disposition Discharge/Transfer:: Home Condition at Disposition:: Unchanged
== END 2019-03-09 17:45 | disposition home or self-care (01) ==
LOC: ER 16:36
DX: S90.562A Insect bite (nonvenomous), left ankle, initial encounter (principal); L08.9 Local infection of the skin and subcutaneous tissue, unspecified; I10 Essential (primary) hypertension; E78.5 Hyperlipidemia, unspecified; M19.90 Unspecified osteoarthritis, unspecified site; Z90.49 Acquired absence of other specified parts of digestive tract; Z98.890 Other specified postprocedural states; Z88.7 Allergy status to serum and vaccine; W57.XXXA Bitten or stung by nonvenomous insect and other nonvenomous arthropods, initial encounter; Y93.89 Activity, other specified; Y92.89 Other specified places as the place of occurrence of the external cause; Y99.8 Other external cause status
CPT/HCPCS: 99283; 96372; J0696; Z7502